=== PATIENT | female | born 1940 | race Asian ===

== ENCOUNTER → 2019-02-10 | Outpatient (CLI) | payer MEDICARE, MEDICAID ==
[~2019-02-10] VITALS: Ht 160 cm; Wt 47.0 kg
[~2019-02-10] MED LIST: ASPI-1182 PO; ATOR10TA84 PO; AZIT250T9 PO; BENZ-51 PO; BUDE10.2 IH; ETHA400T8 PO; ISOS30TA6 PO; LOSA25TA41 PO; METO25 PO; NIFE30TA98 PO; ONDA-104 PO; RIFA300 PO; [UNRECOGNIZED DRUG - CODE] PO
[2019-02-10 11:28] VITALS: BP 115/55
== END | disposition home or self-care (01) ==
LOC: SRCNTR 11:27
PROVIDERS: ATTEND Internal Medicine Critical Care Medicine
DX: C54.1 Malignant neoplasm of endometrium (principal); J44.1 Chronic obstructive pulmonary disease with (acute) exacerbation; I25.10 Atherosclerotic heart disease of native coronary artery without angina pectoris; I12.9 Hypertensive chronic kidney disease with stage 1 through stage 4 chronic kidney disease, or unspecified chronic kidney disease; N18.9 Chronic kidney disease, unspecified
CPT/HCPCS: G0463